=== PATIENT | female | born 1990 | race Caucasian/White ===

== ENCOUNTER 2017-07-08 18:38 | Emergency (ER) | payer MEDICAID ==
[2017-07-08 18:56] VITALS: BP 134/71
[2017-07-08] MEDS ORDERED: Ondansetron 4 MG/2 ML SDV IVPUSH ONE (19:24)
[2017-07-08] MEDS ORDERED: Sodium Chloride 0.9% 1,000 ML IV ONE (19:24)
--- NOTE | 2017-07-08 19:31 | EDM.PDOC ---
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 Denies any vaginal bleeding or discharge. Denies any dysuria. Has normal bowel bladder function. No recent trauma or injury to the abdomen. Patient reports she is from [place] in here on a family vacation. States her initial SOLAR INSTALLATION MANAGER evaluation included an ultrasound with a confirmed IUP. She was told at that time that she would need to follow-up with a "specialist" for possibly having twins, but they were unable to confirm this through the ultrasound. She is unsure why she was going to need to see a specialist. She was supposed to follow-up for a second SOLAR INSTALLATION MANAGER appointment but had missed this due to her family vacation. Last menstrual period was January 23, 2017. Reports the only medication she currently takes is a multivitamin. 6, para 3 Review of systems: As per history of present illness and below otherwise all systems reviewed and negative. Past medical history: As per history of present illness and as reviewed below otherwise noncontributory. Surgical history: As per history of present illness and as reviewed below otherwise noncontributory. Social history: No reported history of drug or alcohol abuse. Family history: As per history of present illness and as reviewed below otherwise noncontributory. Physical exam: Gen.: Nontoxic appearing 26-year-old female. Well-developed and well-nourished. Able to speak in full sentences without shortness of breath. Alert and oriented HEENT: Atraumatic, normocephalic, pupils reactive, negative for conjunctival pallor or scleral icterus, mucous membranes moist, throat clear, neck supple, nontender, trachea midline. Lungs: Clear to auscultation, breath sounds equal bilaterally, chest nontender. Heart: S1S2, regular rate and rhythm Abdomen: Soft, nondistended, nontender. Negative for masses. Negative for costovertebral tenderness. Pelvis: Stable nontender. Genitourinary: Deferred. Rectal: Deferred. Extremities: Atraumatic, negative for cords or calf pain. Neurovascular unremarkable. Neuro: Awake, alert, oriented. Cranial nerves II through XII unremarkable. Cerebellum unremarkable. Motor and sensory unremarkable throughout. Exam nonfocal. Chest the diagnostic findings with the patient. The ultrasound shows a single living intrauterine that estimating 10 weeks and 3 days and a second empty gestational sac which is suggestive of a demise area patient reports that she was semi-aware of this with her previous ultrasound reading. Was concerned because she has not had any vaginal bleeding or cramping with that. I discussed this case with Dr. Melchor, he states there is no further care needed at this time and that she should follow-up with her SOLAR INSTALLATION MANAGER in [place]. He would be happy to see her in his office if she does decide to stay in [place]. And is aware of this and she is agreeable to plan of care. Denies any further questions. Offer her a prescription for Zofran for her nausea. She states she does have Zofran at home and declines any prescription at this time. Diagnostics: CBC, CMP, UA, Rh, transvaginal ultrasound Therapeutics: IV fluid, Zofran Impression: Abdominal pain in , nausea Plan: Please follow-up with your SOLAR INSTALLATION MANAGER in [place] as we discussed. If you continue to have problems or they worsen return to the emergency room as a discussed. Definitive disposition and diagnosis as appropriate pending reevaluation and review of above. Onset: Today Duration: Hour(s): Location: Reports: Abdomen abdomen Pain Score (Numeric/FACES): 8 - Related Data Allergies Allergy/AdvReac Type Severity Reaction Status Date / Time No Known Allergies Allergy Verified 07/08/17 18:50 Home Meds: Home Meds Cholecalciferol (Vitamin D3) [Vitamin D] 1 tab 07/08/17 [History] Iron 18 mg PO DAILY 07/08/17 [History] Ondansetron [Zofran] 4 mg PO ASDIRECTED 07/08/17 [History] Past Medical History - Past Health History Medical/Surgical History: Denies Medical/Surgical History SOLAR INSTALLATION MANAGER History: Reports: Endocrine/Metabolic History: Reports: Obesity/BMI 30+ Social & Family History - Family History Family Medical History: Noncontributory - Tobacco Use Smoking Status *Q: Never Smoker - Caffeine Use Caffeine Use: Reports: None - Recreational Drug Use Recreational Drug Use: No ED ROS GENERAL - Review of Systems Review Of Systems: ROS reveals no pertinent complaints other than HPI. ED EXAM - Physical Exam Exam: See Below (Redictation) Course - Vital Signs Last Recorded V/S: Last Vital Signs Temp 36.4 C 07/08/17 18:38 Pulse 80 07/08/17 18:38 Resp 18 07/08/17 18:38 BP 134/71 07/08/17 18:38 Pulse Ox 98 07/08/17 18:38 - Orders/Labs/Meds Orders: Active Orders 24 hr Category Date Time Status OB 1st Tri Sgl 1st Gest [US] Stat Exams 07/08/17 19:24 Taken Labs: Laboratory Tests 07/08/17 07/08/17 07/08/17 Range/Units 19:30 19:30 19:30 WBC 8.72 (4.0-11.0) K/uL RBC 4.26 L (4.30-5.90) M/uL Hgb 11.0 L (12.0-16.0) g/dL Hct 33.2 L (36.0-46.0) % MCV 77.9 L (80.0-98.0) fL MCH 25.8 L (27.0-32.0) pg MCHC 33.1 (31.0-37.0) g/dL RDW Std Deviation 45.6 (28.0-62.0) fl RDW Coeff of Magali 16 H (11.0-15.0) % Plt Count 228 (150-400) K/uL MPV 9.80 (7.40-12.00) fL Neut % (Auto) 72.0 (48.0-80.0) % Lymph % (Auto) 20.3 (16.0-40.0) % [place] % (Auto) 6.2 (0.0-15.0) % Eos % (Auto) 1.3 (0.0-7.0) % Baso % (Auto) 0.2 (0.0-1.5) % Neut # (Auto) 6.3 H (1.4-5.7) K/uL Lymph # (Auto) 1.8 (0.6-2.4) K/uL [place] # (Auto) 0.5 (0.0-0.8) K/uL Eos # (Auto) 0.1 (0.0-0.7) K/uL Baso # (Auto) 0.0 (0.0-0.1) K/uL Nucleated RBC % 0.0 /100WBC Nucleated RBCs # 0 K/uL Sodium 136 (136-146) mmol/L Potassium 3.4 L (3.5-5.1) mmol/L Chloride 104 (98-110) mmol/L Carbon Dioxide 25 (21-31) mmol/L BUN 8 (6.0-23.0) mg/dL Creatinine 0.6 (0.6-1.5) mg/dL Est Cr Clr Drug Dosing 136.96 mL/min Estimated GFR (MDRD) > 60.0 ml/min Glucose 93 (60-110) mg/dL Calcium 9.2 (8.8-10.8) mg/dL Total Bilirubin 0.2 (0.1-1.5) mg/dL AST 16 (5-40) IU/L ALT 13 (8-54) IU/L Alkaline Phosphatase 68 (40-150) Total Protein 7.0 (6.0-8.0) g/dL Albumin 3.6 (3.5-5.0) g/dL Globulin 3.4 (2.0-3.5) g/dL Albumin/Globulin Ratio 1.1 L (1.3-2.8) HCG, Quant 35538.0 mIU/mL Urine Color Urine Appearance Urine pH (5.0-8.0) Ur Specific Fertile (1.001-1.035) Urine Protein (NEGATIVE) mg/dL Urine Glucose (UA) (NEGATIVE) mg/dL Urine Ketones (NEGATIVE) mg/dL Urine Occult Blood (NEGATIVE) Urine Nitrite (NEGATIVE) Urine Bilirubin (NEGATIVE) Urine Urobilinogen (<2.0) EU/dL Ur Leukocyte Esterase (NEGATIVE) Urine RBC (0-2/HPF) Urine WBC (0-5/HPF) Ur Epithelial Cells (NONE-FEW) Urine Bacteria (NEGATIVE) Blood Type A POSITIVE 07/08/17 Range/Units 19:30 WBC (4.0-11.0) K/uL RBC (4.30-5.90) M/uL Hgb (12.0-16.0) g/dL Hct (36.0-46.0) % MCV (80.0-98.0) fL MCH (27.0-32.0) pg MCHC (31.0-37.0) g/dL RDW Std Deviation (28.0-62.0) fl RDW Coeff of Magali (11.0-15.0) % Plt Count (150-400) K/uL MPV (7.40-12.00) fL Neut % (Auto) (48.0-80.0) % Lymph % (Auto) (16.0-40.0) % [place] % (Auto) (0.0-15.0) % Eos % (Auto) (0.0-7.0) % Baso % (Auto) (0.0-1.5) % Neut # (Auto) (1.4-5.7) K/uL Lymph # (Auto) (0.6-2.4) K/uL [place] # (Auto) (0.0-0.8) K/uL Eos # (Auto) (0.0-0.7) K/uL Baso # (Auto) (0.0-0.1) K/uL Nucleated RBC % /100WBC Nucleated RBCs # K/uL Sodium (136-146) mmol/L Potassium (3.5-5.1) mmol/L Chloride (98-110) mmol/L Carbon Dioxide (21-31) mmol/L BUN (6.0-23.0) mg/dL Creatinine (0.6-1.5) mg/dL Est Cr Clr Drug Dosing mL/min Estimated GFR (MDRD) ml/min Glucose (60-110) mg/dL Calcium (8.8-10.8) mg/dL Total Bilirubin (0.1-1.5) mg/dL AST (5-40) IU/L ALT (8-54) IU/L Alkaline Phosphatase (40-150) Total Protein (6.0-8.0) g/dL Albumin (3.5-5.0) g/dL Globulin (2.0-3.5) g/dL Albumin/Globulin Ratio (1.3-2.8) HCG, Quant mIU/mL Urine Color YELLOW Urine Appearance CLEAR Urine pH 6.0 (5.0-8.0) Ur Specific [place] 1.025 (1.001-1.035) Urine Protein NEGATIVE (NEGATIVE) mg/dL Urine Glucose (UA) NEGATIVE (NEGATIVE) mg/dL Urine Ketones NEGATIVE (NEGATIVE) mg/dL Urine Occult Blood NEGATIVE (NEGATIVE) Urine Nitrite NEGATIVE (NEGATIVE) Urine Bilirubin NEGATIVE (NEGATIVE) Urine Urobilinogen 1.0 (<2.0) EU/dL Ur Leukocyte Esterase NEGATIVE (NEGATIVE) Urine RBC 0-2 (0-2/HPF) Urine WBC 0-3 (0-5/HPF) Ur Epithelial Cells MODERATE (NONE-FEW) Urine Bacteria FEW (NEGATIVE) Blood Type Meds: Medications Discontinued Medications Generic Name Dose Route Start Last Admin Trade Name Freq PRN Reason Stop Dose Admin Sodium Chloride 1,000 mls @ 999 mls/hr 07/08/17 19:24 07/08/17 19:43 Normal Saline IV 07/08/17 20:24 999 mls/hr STAT ONE Administration Ondansetron HCl 4 mg 07/08/17 19:24 Zofran IVPUSH 07/08/17 19:25 ONETIME ONE Departure - Departure Time of Disposition: 21:09 Disposition: Home, Self-Care 01 Condition: Good Clinical Impression: Nausea and vomiting during Abdominal pain in Qualifiers: Trimester: first trimester Qualified Code(s): O26.891 - Other specified related conditions, first trimester; R10.9 - Unspecified abdominal pain - Discharge Information Referrals: PCP,None [Primary Care Provider] - Forms: ED Department Discharge Additional Instructions: My general discharge The following information is given to patients seen in the emergency department who are being discharged to home. This information is to outline your options for follow-up care. We provide all patients seen in our emergency department with a follow-up referral. The need for follow-up, as well as the timing and circumstances, are variable depending upon the specifics of your emergency department visit. If you don't have a primary care physician on staff, we will provide you with a referral. We always advise you to contact your personal physician following an emergency department visit to inform them of the circumstance of the visit and for follow-up with them and/or the need for any referrals to a consulting specialist. The emergency department will also refer you to a specialist when appropriate. This referral assures that you have the opportunity for follow-up care with a specialist. All of these measure are taken in an effort to provide you with optimal care, which includes your follow-up. Under all circumstances we always encourage you to contact your private physician who remains a resource for coordinating your care. When calling for follow-up care, please make the office aware that this follow-up is from your recent emergency room visit. If for any reason you are refused follow-up, please contact the [facility] Emergency Department at and asked to speak to the emergency department charge nurse. [facility] Primary [facility] - Women's Health [address] [place] [id number] Please follow-up with your SOLAR INSTALLATION MANAGER in [place] as we discussed. If you continue to have problems or they worsen return to the emergency room as a discussed. - My Orders Last 24 Hours: My Active Orders 07/08/17 19:24 OB 1st Tri Sgl 1st Gest [US] Stat - Assessment/Plan Last 24 Hours: My Active Orders 07/08/17 19:24 OB 1st Tri Sgl 1st Gest [US] Stat
[2017-07-08 20:09] LABS: CHLORIDE,CL 104 mmol/L (98-110); SODIUM,NA 136 mmol/L (136-146)
--- NOTE | 2017-07-10 14:02 | US ---
EXAM DATE: 07/08/17 PATIENT'S AGE: 26 Patient: KEVON THOMAS Facility: [place], [place] Site . Site : 1990 Study: US OB Pelvis [id number] 8:31:18 PM Ordering Physician: Doctor Townsend Final Report: INDICATION: Cramping. TECHNIQUE: Transabdominal OB pelvic ultrasound. COMPARISON: None available. FINDINGS: Single living intrauterine with crown-rump length of 3.4 cm corresponding to 10 weeks 3 days. heart rate is 178 beats per minute. Gestational sac containing be living intrauterine is in the left aspect of the endometrial canal. An empty right gestational sac is noted suggesting a demise of a twin . No perigestational hemorrhage demonstrated. The uterus is otherwise unremarkable. The right and left ovaries are within normal limits. No free fluid demonstrated. IMPRESSION: Single living intrauterine with estimated age of 10 weeks 3 days. Empty right-sided gestational sac suggesting demise of a twin . Dictated by Dieter Bauer MD @ 07/08/2017 8:51:39 PM Dictated by: Dieter Bauer MD @ 07/08/2017 20:52:03 (Electronic Signature) Report Signed by Proxy. NITZA
== END 2017-07-08 21:53 | disposition home or self-care (01) ==
LOC: MW.ED 18:38
DX: O99.89 Other specified diseases and conditions complicating pregnancy, childbirth and the puerperium (principal); R10.84 Generalized abdominal pain; O21.9 Vomiting of pregnancy, unspecified; Z3A.10 10 weeks gestation of pregnancy
CPT/HCPCS: 76801; 80053; 81001; 84702; 85025; 86900; 86901; 99284; J7040; 99283